=== PATIENT | female | born 1995 | race Caucasian/White ===

== ENCOUNTER 2021-01-18 23:53 | Emergency (ER) | payer OTHER, SELFPAY ==
[2021-01-19 00:17] VITALS: BP 138/67; PULSE 75; RESP 18; TEMP 36.8; O2SAT 96; BMI 38.2
[2021-01-19] MEDS: SODIUM CHLORIDE 0.9% 1,000 ML 1000 ML IV (01:30)
[2021-01-19 01:32] LABS: Add Manual Diff / Slide Review NO; Basophils Absolute Auto 100 /uL (0-100); Basophils Percent Auto 1.2 % (0-2); Eosinophils Absolute Auto 100 /uL (0-450); Eosinophils Percent Auto 1.2 % (2-4); Hematocrit 39.6 % (36-46); Hemoglobin 13.1 g/dL (12.0-16.0); Lymphocytes Absolute Auto 2700 /uL (1100-4500); Lymphocytes Percent Auto 40.1 % (25-40); Mean Corpuscular HGB Conc 33.2 % (30-36); Mean Corpuscular Hemoglobin 30.5 PG (26-34); Monocytes Absolute Auto 500 /uL (0-900); Monocytes Percent Auto 7.7 % (3-14); Neutrophils Absolute Auto 3300 /uL (1500-7000); Neutrophils Percent Auto 49.8 % (50-75); Platelet Count 262 X10^3/uL (150-400); Red Blood Cell Count 4.31 X10^6/uL (4.0-5.2); Red Cell Distribution Width 12.8 % (11.6-14.8); White Blood Cell Count 6.6 X10^3/uL (4.5-11.0)
[2021-01-19 01:38] LABS: Alanine Aminotransferase 49 IU/L (<35); Albumin 4.4 g/dL (3.5-5.0); Albumin Globulin Ratio 1.4 (1.0-2.8); Alkaline Phosphatase 38 U/L (38-126); Aspartate Aminotransferase 48 IU/L (14-36); BUN Creatinine Ratio 14.3 (6-22); Bilirubin Total 0.5 mg/dL (0.2-1.3); Blood Urea Nitrogen 10 mg/dL (7-17); Calcium 9.6 mg/dL (8.4-10.2); Carbon Dioxide 22 mmol/L (22-32); Chloride 110 mmol/L (98-107); Estimated Glomerular Filt Rate > 60.0 mL/min (>60); Globulin 3.2 g/dL (1.7-4.1); Glucose 101 mg/dL (70-100); HEMOLYSIS 34 (0-50); Lipase 111 U/L (23-300); Potassium 3.8 mmol/L (3.4-5.1); Sodium 142 mmol/L (137-145); Total Protein 7.6 g/dL (6.3-8.2)
--- NOTE | 2021-01-19 05:06 | ED_ITS ---
HPI - Abdominal Pain General Chief Complaint: Abdominal Pain Stated Complaint: Potential ovarian cyst, lower right abd pain Time Seen by Provider: 01/19/21 02:21 Source: patient Mode of arrival: Ambulatory Limitations: no limitations History of Present Illness HPI narrative: 25-year-old woman with a history of polycystic ovary disease and prior ovarian cysts presents with abdominal pain that started almost 24 hours ago. When it initially started it was in her lower abdomen and was uncomfortable all day. By 6:00 p.m. she had significantly increasing pain and then suddenly shooting pain in the lower abdomen. She is on oral contraceptives and has withdrawal bleeding cycles every 3 months. She has a primary care physician in [place]. She does not describe fevers, cough, chills, vomiting, diarrhea she is not currently menstruating. She is having no chest pain or palpitations. Related Data Allergies Allergy/AdvReac Type Severity Reaction Status Date / Time No Known Drug Allergies Allergy Verified 01/19/21 00:17 Review of Systems Review of Systems Narrative: Remainder of complete review of systems is otherwise unremarkable except for that included in the HPI. Patient History Social History Smoking Status: Never smoker Smoking Status: Never smoker alcohol intake frequency: a few times a week Substance Use Type: marijuana Exam Narrative Exam Narrative: General: Healthy appearing, in no acute distress. Able to give a complete and coherent history. Well-nourished well-developed Respiratory: Lungs are clear to auscultation, no wheezing no rales no rhonchi. Full and symmetrical air movement Cardiac: Regular rate and rhythm no murmurs no bruits Abdomen: Soft, nontender, good bowel tones, no flank pain Skin: Warm and dry, no rashes Neurologic: Grossly neurologically intact with no obvious asymmetries or abnormalities Extremities: No trauma, well perfused Psych: Cooperative, appropriate insight and affect Initial Vital Signs Initial Vital Signs: Vital Signs Temperature 98.2 F 01/19/21 00:17 Pulse Rate 75 01/19/21 00:17 Respiratory Rate 18 01/19/21 00:17 Blood Pressure 138/67 01/19/21 00:17 Pulse Oximetry 96 01/19/21 00:17 Course Orders Ordered: Discontinued Medications Sodium Chloride (Normal Saline 0.9%) 1,000 mls @ 1,000 mls/hr IV BOLUS ONE Stop: 01/19/21 06:17 Last Infusion: 01/19/21 02:30 Dose: 0 mls/hr Documented by: Admin: 01/19/21 01:30 Dose: 1,000 mls/hr Documented by: FLAQUITA Vital Signs Vital signs: Vital Signs - 8 hr 01/19/21 00:17 Temperature 98.2 F Pulse Rate 75 Respiratory Rate 18 Blood Pressure 138/67 Pulse Oximetry 96 MDM - Abdominal Pain Lab Data Result diagrams: 01/19/21 01:10 01/19/21 01:10 Labs: Lab Results 01/19/21 01/19/21 Range/Units 01:10 01:10 WBC 6.6 (4.5-11.0) X10^3/uL RBC 4.31 (4.0-5.2) X10^6/uL Hgb 13.1 (12.0-16.0) g/dL Hct 39.6 (36-46) % MCV 92.0 (80-100) fL MCH 30.5 (26-34) PG MCHC 33.2 (30-36) % RDW 12.8 (11.6-14.8) % Plt Count 262 (150-400) X10^3/uL Neut % (Auto) 49.8 L (50-75) % Lymph % (Auto) 40.1 H (25-40) % [place] % (Auto) 7.7 (3-14) % Eos % (Auto) 1.2 L (2-4) % Baso % (Auto) 1.2 (0-2) % Neut # (Auto) 3300 (2016-1538) /uL Lymph # (Auto) 2700 (4598-4554) /uL [place] # (Auto) 500 (0-900) /uL Eos # (Auto) 100 (0-450) /uL Baso # (Auto) 100 (0-100) /uL Sodium 142 (137-145) mmol/L Potassium 3.8 (3.4-5.1) mmol/L Chloride 110 H (98-107) mmol/L Carbon Dioxide 22 (22-32) mmol/L BUN 10 (7-17) mg/dL Creatinine 0.70 (0.52-1.04) mg/dL Estimated GFR > 60.0 (>60) mL/min BUN/Creatinine Ratio 14.3 (6-22) Glucose 101 H (70-100) mg/dL Calcium 9.6 (8.4-10.2) mg/dL Total Bilirubin 0.5 (0.2-1.3) mg/dL AST 48 H (14-36) IU/L ALT 49 H (<35) IU/L Alkaline Phosphatase 38 (38-126) U/L Total Protein 7.6 (6.3-8.2) g/dL Albumin 4.4 (3.5-5.0) g/dL Globulin 3.2 (1.7-4.1) g/dL Albumin/Globulin Ratio 1.4 (1.0-2.8) Lipase 111 (23-300) U/L Point of care testing: Point of Care Testing Test Results Negative Urine Dip Bedside Urine Glucose Negative Bedside Urine Bilirubin - Negative Bedside Urine Ketone - Negative Urine Specific [place] 1.030 Bedside Urine Occult Blood - Negative Bedside Urine pH 6.0 Bedside Urine Protein - Negative Bedside Urine Urobilinogen - Negative Bedside Urine Nitrite - Negative Bedside Urine Leukocytes - Negative Esterase MDM Narrative Medical decision making narrative: 25-year-old woman presents with 24 hours of abdominal pain. Lab studies are unremarkable and by the time I have a chance to examine her her pain has completely resolved. There has been no intervening pain medication given. We discussed additional options at this point decided that was safe for her to go home if she had recurrent pain issues are concerned she could certainly return to the emergency department Discharge Plan Departure Patient Disposition: Home Clinical Impression: Abdominal pain Qualifiers: Abdominal location: lower abdomen, unspecified Qualified Code(s): R10.30 - Lower abdominal pain, unspecified Instructions: DI for Abdominal Pain-Adult Activity Restrictions/Additional Instructions: Thank you for coming in this evening Your pain has essentially resolved. Your lab work today was very reassuring and your exam is equally reassuring. I do not have a complete explanation however I do not suspect appendicitis, ovarian cysts, diverticulitis, bowel obstruction or other life-threatening findings. If you find symptoms are returning or changing, please feel free to return for further evaluation
[2021-01-19 05:25] VITALS: BP 128/68; PULSE 82; RESP 18; O2SAT 97
== END 2021-01-19 05:26 | disposition home or self-care (01) ==
PROVIDERS: Emergency Provider Emergency Medicine
DX: R10.30 Lower abdominal pain, unspecified (principal)
CPT/HCPCS: 36415; 80053; 81003; 81025; 83690; 85025; 96360; 99284

== ENCOUNTER 2021-01-29 10:28 | Emergency (ER) | payer OTHER, MEDICAID, SELFPAY ==
[2021-01-29] VITALS (13 sets, daily range): BP systolic 98–129; BP diastolic 61–76; PULSE 65–98; RESP 14–18; TEMP 36.9; O2SAT 96–100; BMI 38.2
--- NOTE | 2021-01-29 11:23 | ED.GENADULT ---
HPI - General Adult General Chief complaint: Abdominal Pain Stated complaint: ABD PAIN FOR 2 WEEKS Time Seen by Provider: 01/29/21 10:39 Source: patient Mode of arrival: Ambulatory Limitations: no limitations History of Present Illness HPI narrative: 25-year-old female here for evaluation of right-sided abdominal discomfort. She states that was a fairly sudden onset approximately 2 weeks ago. It has been consistent discomfort since then. No urinary symptoms. No change in bowel habits. No problems with eating. No nausea vomiting. No fevers. She is on control. She states that she does not have menstrual cycles because of this. She has seen her primary doctor who apparently has done lab work and a urinalysis and told her everything was okay. She thinks that it potentially was an ovarian cyst because she has had that in the past. She is scheduled for an ultrasound but is yet to have this performed. Related Data Allergies Allergy/AdvReac Type Severity Reaction Status Date / Time No Known Drug Allergies Allergy Verified 01/19/21 00:17 Review of Systems Constitutional Constitutional: Reports system reviewed and no additional complaints, except as documented Cardiovascular Cardiovascular: Reports system reviewed and no additional complaints, except as documented Respiratory Respiratory: Reports system reviewed and no additional complaints, except as documented Gastrointestinal Gastrointestinal: Reports as per HPI Genitourinary Genitourinary: Reports as per HPI Musculoskeletal Musculoskeletal: Reports system reviewed and no additional complaints, except as documented Integumentary/Breasts Skin/Breast: Reports system reviewed and no additional complaints, except as documented Neurologic Neurologic: Reports system reviewed and no additional complaints, except as documented Hematologic/Lymphatic On Anticoagulants: No Allergic/Immunologic Allergic/Immunologic: Reports system reviewed and no additional complaints, except as documented Patient History Medical History Ovarian cyst Social History Smoking Status: Never smoker Smoking Status: Never smoker alcohol intake frequency: a few times a week Substance Use Type: marijuana Exam Initial Vital Signs Initial Vital Signs: Vital Signs Temperature 98.4 F 01/29/21 10:40 Pulse Rate 93 H 01/29/21 10:40 Respiratory Rate 18 01/29/21 10:40 Blood Pressure 129/76 01/29/21 10:40 Pulse Oximetry 99 01/29/21 10:40 Const General: cooperative and healthy appearing HENHI Head: normal to inspection and normocephalic Eyes General: appearance normal, both eyes and all related structures Resp Effort & Inspection: normal respiratory effort Auscultation: clear to auscultation bilaterally Cardio Rate: regular rate Rhythm: regular rhythm GI Inspection: normal to inspection and distended Palpation: No firm, No guarding and tender (Right-sided abdomen) Back/Spine/Pelvis Back: No CVA tenderness Skin General: no rashes or lesions noted Neuro General: patient alert, patient awake, patient oriented x3 and moves all extremities Extrem General: normal to inspection and capillary refill normal Psych Appearance: grossly normal and well kempt Course Orders Ordered: ED Orders 01/29/21 11:22 CT abdomen pelvis w con Stat 01/29/21 12:12 Complete Blood Count AUTO DIFF Stat Comprehensive Metabolic Panel Stat Lipase Stat Test Serum,Qual Stat 01/29/21 13:48 US pelvic complete Stat 01/29/21 14:15 COVID19 -Nasal swab/Pre-Proc Stat 01/29/21 19:09 Cancer Antigen 125 Stat Carcinoembryonic Antigen Stat Discontinued Medications Sodium Chloride (Normal Saline 0.9%) 1,000 mls @ 1,000 mls/hr IV BOLUS ONE Stop: 01/29/21 12:20 Last Infusion: 01/29/21 13:12 Dose: 0 mls/hr Documented by: Admin: 01/29/21 12:12 Dose: 1,000 mls/hr Documented by: ROBSON Vital Signs Vital signs: Vital Signs - 8 hr 01/29/21 12:25 01/29/21 12:30 01/29/21 13:00 Pulse Rate 71 65 69 Respiratory Rate 16 Blood Pressure 98/63 107/66 Pulse Oximetry 99 99 100 01/29/21 13:58 01/29/21 14:00 01/29/21 14:14 Pulse Rate 90 76 98 H Respiratory Rate 14 Blood Pressure 122/67 122/67 Pulse Oximetry 96 100 98 01/29/21 15:46 01/29/21 16:58 01/29/21 16:59 Pulse Rate 77 Respiratory Rate Blood Pressure 117/61 111/65 Pulse Oximetry 98 98 99 Medical Decision Making Lab Data Lab results reviewed: Yes I reviewed the patient's lab results. Result diagrams: 01/29/21 12:12 01/29/21 12:12 Labs: Lab Results 01/29/21 01/29/21 01/29/21 Range/Units 12:12 12:12 12:12 WBC 9.1 (4.5-11.0) X10^3/uL RBC 4.35 (4.0-5.2) X10^6/uL Hgb 13.4 (12.0-16.0) g/dL Hct 40.1 (36-46) % MCV 92.1 (80-100) fL MCH 30.8 (26-34) PG MCHC 33.4 (30-36) % RDW 12.6 (11.6-14.8) % Plt Count 207 (150-400) X10^3/uL Neut % (Auto) 79.6 H (50-75) % Lymph % (Auto) 14.5 L (25-40) % [place] % (Auto) 4.9 (3-14) % Eos % (Auto) 0.4 L (2-4) % Baso % (Auto) 0.6 (0-2) % Neut # (Auto) 7300 H (5316-3484) /uL Lymph # (Auto) 1300 (6360-1666) /uL [place] # (Auto) 400 (0-900) /uL Eos # (Auto) 0 (0-450) /uL Baso # (Auto) 100 (0-100) /uL Sodium 140 (137-145) mmol/L Potassium 4.1 (3.4-5.1) mmol/L Chloride 109 H (98-107) mmol/L Carbon Dioxide 25 (22-32) mmol/L BUN 9 (7-17) mg/dL Creatinine 0.67 (0.52-1.04) mg/dL Estimated GFR > 60.0 (>60) mL/min BUN/Creatinine Ratio 13.4 (6-22) Glucose 83 (70-100) mg/dL Calcium 9.2 (8.4-10.2) mg/dL Total Bilirubin 0.4 (0.2-1.3) mg/dL AST 30 (14-36) IU/L ALT 29 (<35) IU/L Alkaline Phosphatase 37 L (38-126) U/L Total Protein 7.2 (6.3-8.2) g/dL Albumin 4.1 (3.5-5.0) g/dL Globulin 3.1 (1.7-4.1) g/dL Albumin/Globulin Ratio 1.3 (1.0-2.8) Lipase 139 (23-300) U/L Serum , Qual Negative (Negative) SARS-CoV-2 (PCR) (Negative) 01/29/21 Range/Units 14:15 WBC (4.5-11.0) X10^3/uL RBC (4.0-5.2) X10^6/uL Hgb (12.0-16.0) g/dL Hct (36-46) % MCV (80-100) fL MCH (26-34) PG MCHC (30-36) % RDW (11.6-14.8) % Plt Count (150-400) X10^3/uL Neut % (Auto) (50-75) % Lymph % (Auto) (25-40) % [place] % (Auto) (3-14) % Eos % (Auto) (2-4) % Baso % (Auto) (0-2) % Neut # (Auto) (7034-3865) /uL Lymph # (Auto) (0669-8081) /uL [place] # (Auto) (0-900) /uL Eos # (Auto) (0-450) /uL Baso # (Auto) (0-100) /uL Sodium (137-145) mmol/L Potassium (3.4-5.1) mmol/L Chloride (98-107) mmol/L Carbon Dioxide (22-32) mmol/L BUN (7-17) mg/dL Creatinine (0.52-1.04) mg/dL Estimated GFR (>60) mL/min BUN/Creatinine Ratio (6-22) Glucose (70-100) mg/dL Calcium (8.4-10.2) mg/dL Total Bilirubin (0.2-1.3) mg/dL AST (14-36) IU/L ALT (<35) IU/L Alkaline Phosphatase (38-126) U/L Total Protein (6.3-8.2) g/dL Albumin (3.5-5.0) g/dL Globulin (1.7-4.1) g/dL Albumin/Globulin Ratio (1.0-2.8) Lipase (23-300) U/L Serum , Qual (Negative) SARS-CoV-2 (PCR) Negative (Negative) Urine Dip Bedside Urine Glucose Negative Bedside Urine Bilirubin - Negative Bedside Urine Ketone - Negative Urine Specific [place] 1.025 Bedside Urine Occult Blood - Negative Bedside Urine pH 6.0 Bedside Urine Protein - Negative Bedside Urine Urobilinogen 0.2 Bedside Urine Nitrite - Negative Bedside Urine Leukocytes - Negative Esterase Point of care testing: Urine Dip Bedside Urine Glucose Negative Bedside Urine Bilirubin - Negative Bedside Urine Ketone - Negative Urine Specific [place] 1.025 Bedside Urine Occult Blood - Negative Bedside Urine pH 6.0 Bedside Urine Protein - Negative Bedside Urine Urobilinogen 0.2 Bedside Urine Nitrite - Negative Bedside Urine Leukocytes - Negative Esterase Imaging Data CT scan - abdomen/pelvis: Radiologist's Impression: [address] [id number] Scan ReportSigned Patient: Angelica Santillan [facility]#: [id number]: 1995Acct:[id number]/Sex: 25 / FDate of Service: 01/29/21Loc: EDAccession Number: [id number] Procedure: CT abdomen pelvis w con Ordering Provider: Hiram Colby D.O. PROCEDURE: CT ABDOMEN PELVIS W CON INDICATIONS: RLQ ABD pain TECHNIQUE: After the administration of intravenous contrast, axial sections acquired from the lung bases to the pubic symphysis. Coronal and sagittal reformats were performed. For radiation dose reduction, the following was used: automated exposure control, adjustment of mA and/or kV according to patient size. COMPARISON: None. FINDINGS: Image quality: Excellent. Lung bases: Unremarkable. Heart: No significant findings. ABDOMEN: Liver: Unremarkable. Gallbladder: Is unremarkable. Biliary ducts: Unremarkable. Pancreas: Unremarkable. Spleen: Unremarkable. Adrenal Glands: Unremarkable. Kidneys and Ureters: Unremarkable. Stomach and Bowel: The visualized loops of bowel have an unremarkable appearance. However, there may be loops of bowel within the multi-septated cystic process. Peritoneum: No free air. Ventral Wall: No hernias. Abdominal Nodes: No retroperitoneal or mesenteric adenopathy by size criteria. Vessels: Aorta and inferior vena cava are normal in size. PELVIS: Pelvic Organs: Ovaries indistinguishable from a massive multi-septated predominantly cystic mass with enhancing mural nodules extending from the pelvis to the upper abdomen. Overall dimensions are 28.7 x 32.9 x 19.4 cm. Bladder: Unremarkable. Pelvic Nodes: No enlarged lymph nodes. Miscellaneous: No hernias are seen. Bones: Unremarkable. IMPRESSION: Extremely large multi-cystic, multi-septated mass with multiple mural nodular areas of enhancement, apparently extending from the pelvis to involve most of the abdomen, as described above. 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 There is a question of the presence of bowel loops within the multi-septated multi-cystic process. Comment: Findings were discussed with Dr. Colby at the time of study dictation. Dictated by: Sandro Cisneros M.D. on 01/29/2021 at 13:36 Approved by: Sandro Cisneros M.D. on 01/29/2021 at 14:00 US - ENROLLMENT ELIGIBILITY REPRESENTATIVE: Radiologist's Impression: [address] [id number] ReportSigned Patient: Angelica Santillan NMR#: [id number]: 1995Acct:[id number]/Sex: 25 / FDate of Service: 01/29/21Loc: EDAccession Number: [id number] Procedure: US pelvic complete Ordering Provider: Hiram Colby D.O. PROCEDURE: US PELVIC COMPLETE INDICATIONS: LARGE ABDOMINAL MASS. EVALUATE OVARIES. TECHNIQUE: Real-time scanning was performed of the pelvic organs, with image documentation. Additional endovaginal scanning was necessary due to incomplete visualization of the adnexal and endometrial structures by transabdominal scanning. COMPARISON: [facility], CT, CT ABDOMEN PELVIS W CON, 01/29/2021, 13:24. FINDINGS: Uterus: Uterus is normal in size at 7.8 x 5.5 x 3.3 cm. The endometrium measures 2.6 mm in combined thickness. Prominent periuterine vessels are identified. Ovaries: Ovaries are not definitely visualized. There is a large 30.9 x 43.3 x 16.8 centimeter multi -cystic lesion with internal septations involving the abdomen and pelvis. Doppler evaluation demonstrates venous flow in the lesion. Other: No pathologic free abdominal or pelvic fluid. IMPRESSION: Large multi-cystic lesion with internal septations and involving the abdomen pelvic corresponds to abnormality identified by CT scan obtained January 29, 2021. Finding highly suspicious for cystic neoplasm which could possibly arise from either the right or left adnexa. Recommend gynecologic consultation and/or MRI of the pelvis for additional evaluation. Dictated by: Susan Rivera MD, PhD on 01/29/2021 at 15:47 Approved by: Susan Rivera MD, PhD on 01/29/2021 at 15:51 [facility] Narrative Medical decision making narrative: The CT scan today shows a very large mass what appears to be originating from the pelvic organs. Ultrasound concerning for left-sided etiology although it is not 100% clear. She does have a benign abdominal exam. Labs are unremarkable. I did discuss the case with Dr. Jenkins with gynecology/oncology the [facility] he stated that the patient can follow-up as a outpatient with them. She did take the patient's phone number will contact her for follow-up. I also discussed the case with the on-call provider for the patient's primary doctor. They will also call the patient for follow-up. I did discuss all of the findings with the patient. She was given follow-up information. She expressed understanding and agreement. Discharge Plan Departure Patient Disposition: Home Clinical Impression: Abdominal pain, Abdominal mass Instructions: DI for Abdominal Pain-Adult Activity Restrictions/Additional Instructions: I discussed your case today with Dr. jenkins with the Gynecology/Oncology Department at the [facility]. She stated that you can contact their vocational technical education teacher whose name is Alejandra at [phone]. And also choose option 1. I also contacted your primary doctor's office and they stated that they will contact you for follow-up as well. There were 2 lab tests that were pending at the time of your discharge. These will take couple days to result. Recommend that you follow-up with your primary doctor and also the Gynecology/Oncology Department. Return to the emergency department for any new or worsening symptoms.
[2021-01-29] MEDS: SODIUM CHLORIDE 0.9% 1,000 ML 1000 ML IV (12:12)
[2021-01-29 12:19] LABS: Add Manual Diff / Slide Review NO; Basophils Absolute Auto 100 /uL (0-100); Basophils Percent Auto 0.6 % (0-2); Eosinophils Absolute Auto 0 /uL (0-450); Eosinophils Percent Auto 0.4 % (2-4); Hematocrit 40.1 % (36-46); Hemoglobin 13.4 g/dL (12.0-16.0); Lymphocytes Absolute Auto 1300 /uL (1100-4500); Lymphocytes Percent Auto 14.5 % (25-40); Mean Corpuscular HGB Conc 33.4 % (30-36); Mean Corpuscular Hemoglobin 30.8 PG (26-34); Mean Corpuscular Volume 92.1 fL (80-100); Monocytes Absolute Auto 400 /uL (0-900); Monocytes Percent Auto 4.9 % (3-14); Neutrophils Absolute Auto 7300 /uL (1500-7000); Neutrophils Percent Auto 79.6 % (50-75); Platelet Count 207 X10^3/uL (150-400); Red Blood Cell Count 4.35 X10^6/uL (4.0-5.2); Red Cell Distribution Width 12.6 % (11.6-14.8); White Blood Cell Count 9.1 X10^3/uL (4.5-11.0)
[2021-01-29 12:30] LABS: Alanine Aminotransferase 29 IU/L (<35); Albumin 4.1 g/dL (3.5-5.0); Albumin Globulin Ratio 1.3 (1.0-2.8); Alkaline Phosphatase 37 U/L (38-126); Aspartate Aminotransferase 30 IU/L (14-36); BUN Creatinine Ratio 13.4 (6-22); Bilirubin Total 0.4 mg/dL (0.2-1.3); Blood Urea Nitrogen 9 mg/dL (7-17); Calcium 9.2 mg/dL (8.4-10.2); Carbon Dioxide 25 mmol/L (22-32); Chloride 109 mmol/L (98-107); Estimated Glomerular Filt Rate > 60.0 mL/min (>60); Globulin 3.1 g/dL (1.7-4.1); Glucose 83 mg/dL (70-100); HEMOLYSIS < 15 (0-50); Lipase 139 U/L (23-300); Potassium 4.1 mmol/L (3.4-5.1); Sodium 140 mmol/L (137-145); Total Protein 7.2 g/dL (6.3-8.2)
[2021-01-29 12:33] LABS: Pregnancy Test Serum,Qual Negative (Negative)
--- NOTE | 2021-01-29 13:48 | DI.US.S_ITS ---
PROCEDURE: US PELVIC COMPLETE INDICATIONS: LARGE ABDOMINAL MASS. EVALUATE OVARIES. TECHNIQUE: Real-time scanning was performed of the pelvic organs, with image documentation. Additional endovaginal scanning was necessary due to incomplete visualization of the adnexal and endometrial structures by transabdominal scanning. COMPARISON: [facility], CT, CT ABDOMEN PELVIS W CON, 01/29/2021, 13:24. FINDINGS: Uterus: Uterus is normal in size at 7.8 x 5.5 x 3.3 cm. The endometrium measures 2.6 mm in combined thickness. Prominent periuterine vessels are identified. Ovaries: Ovaries are not definitely visualized. There is a large 30.9 x 43.3 x 16.8 centimeter multi -cystic lesion with internal septations involving the abdomen and pelvis. Doppler evaluation demonstrates venous flow in the lesion. Other: No pathologic free abdominal or pelvic fluid. IMPRESSION: Large multi-cystic lesion with internal septations and involving the abdomen pelvic corresponds to abnormality identified by CT scan obtained January 29, 2021. Finding highly suspicious for cystic neoplasm which could possibly arise from either the right or left adnexa. Recommend gynecologic consultation and/or MRI of the pelvis for additional evaluation. Dictated by: Susan Rivera MD, PhD on 01/29/2021 at 15:47 Approved by: Susan Rivera MD, PhD on 01/29/2021 at 15:51
[2021-01-29 15:14] LABS: COVID19 -Nasal RAPID Negative (Negative)
[2021-01-29 20:00] LABS: Cancer Antigen 125 55.8 U/mL (0-35); Carcinoembryonic Antigen 0.5 ng/mL (0.1-3.0)
== END 2021-01-29 19:45 | disposition home or self-care (01) ==
PROVIDERS: Emergency Provider Emergency Medicine
DX: R19.00 Intra-abdominal and pelvic swelling, mass and lump, unspecified site (principal); R10.9 Unspecified abdominal pain; Z20.822 Contact with and (suspected) exposure to COVID-19
CPT/HCPCS: 36415; 74177; 76830; 76856; 80053; 81003; 82378; 83690; 84703; 85025; 86304; 87635; 96360; 99284; C9803; Q9967